=== PATIENT | female | born 1975 | race Caucasian/White ===

== ENCOUNTER 2020-10-31 10:41 | Outpatient (REF) | payer OTHER, SELFPAY | END 2020-10-31 10:42 | disposition home or self-care (01) | LOC: HO.LAB 10:41 | PROVIDERS: Visit Provider Internal Medicine | DX: Z20.822 Contact with and (suspected) exposure to COVID-19 (principal) | CPT/HCPCS: 36415; C9803; U0003; U0005 ==

== ENCOUNTER 2021-10-02 00:45 | Emergency (ER) | payer SELFPAY ==
[2021-10-02 00:57] VITALS: BP 123/65; BP 162/78; PULSE 74; PULSE 78; RESP 20; TEMP 36.9; O2SAT 100; O2SAT 98; BMI 36.6
== END 2021-10-02 06:44 | disposition left against medical advice (07) ==
LOC: HO.ED 06:43
PROVIDERS: Emergency Provider Emergency Medicine
DX: R10.31 Right lower quadrant pain (principal)
CPT/HCPCS: 99281; 99282

== ENCOUNTER 2021-12-28 07:45 | Outpatient (REF) | payer MEDICAID, SELFPAY ==
[2021-12-28 08:13] LABS: MANUAL DIFF FLAG NO
[2021-12-28 08:40] LABS: Basophils Percent Auto 0.4 % (0-2); Eosinophils Absolute Auto 0.2 X10*3/uL (0.0-0.4); Eosinophils Percent Auto 2.1 % (0-4); Hematocrit 40.3 % (37.0-47.0); Hemoglobin 12.8 g/dl (12.0-16.0); Imm Gran Abs Auto 0.03 X10*3/uL (0.00-0.03); Imm Gran Pct Auto 0.4 % (0.0-0.4); Lymphocytes Absolute Auto 2.2 X10*3/uL (1.2-4.9); Lymphocytes Percent Auto 30.4 % (20-40); Mean Corpuscular HGB Conc 31.8 g/dl (31.0-35.0); Mean Corpuscular Hemoglobin 28.2 pg (27.0-33.0); Mean Corpuscular Volume 88.8 fL (80.0-98.0); Mean Platelet Volume 10.6 fL (9.4-12.3); Monocytes Absolute Auto 0.7 X10*3/uL (0.1-1.2); Monocytes Percent Auto 9.2 % (2-11); Neutrophils Absolute Auto 4.2 x10*3/uL (2.0-8.3); Neutrophils Percent Auto 57.5 % (45-73); Platelet Count 258 X10*3/uL (160-400); Red Blood Count 4.54 X10*6/uL (4.20-5.50); Red Cell Distribution Width 12.6 % (11.0-16.0); White Blood Count 7.3 X10*3/uL (4.8-10.8)
[2021-12-28 09:30] LABS: Alanine Aminotransferase 76 U/L (0-31); Albumin Level 3.9 g/dL (3.5-5.0); Alkaline Phosphatase 146 U/L (39-117); Anion Gap 11 (12-20); Aspartate Amino Transferase 55 U/L (5-31); Bilirubin Total 0.5 mg/dL (0.0-1.0); Blood Urea Nitrogen 12 mg/dL (9-16); Calcium 9.4 mg/dL (8.4-10.2); Carbon Dioxide 27 mmol/L (22-29); Chloride 106 mmol/L (96-108); Cholesterol 172 mg/dL; Estimated Glomerular Filt Rate > 60; Glucose Random 133 mg/dL (60-115); HDL Cholesterol 60 mg/dL; LDL Cholesterol Calculated 96 mg/dl; Potassium 4.3 mmol/L (3.3-5.1); Sodium 140 mmol/L (135-145); Total Protein 7.2 g/dL (6.5-8.0); Triglycerides 81 mg/dL
[2021-12-28 09:53] LABS: Thyroid Stimulating Hormone 1.52 uIU/mL (0.32-4.0)
== END 2021-12-28 07:46 | disposition home or self-care (01) ==
LOC: HO.LAB 07:45
PROVIDERS: PCP Internal Medicine; Visit Provider Internal Medicine
DX: H52.03 Hypermetropia, bilateral (principal); I10 Essential (primary) hypertension; K27.7 Chronic peptic ulcer, site unspecified, without hemorrhage or perforation; R51.9 Headache, unspecified
CPT/HCPCS: 36415; 80053; 80061; 84443; 85025

== ENCOUNTER 2021-12-30 10:54 | Outpatient (REF) | payer MEDICAID, SELFPAY | END 2021-12-30 10:55 | disposition home or self-care (01) | LOC: HO.LNP 10:54 | PROVIDERS: Visit Provider Internal Medicine | DX: H52.03 Hypermetropia, bilateral (principal); I10 Essential (primary) hypertension; K27.7 Chronic peptic ulcer, site unspecified, without hemorrhage or perforation; R51.9 Headache, unspecified; Z11.0 Encounter for screening for intestinal infectious diseases | CPT/HCPCS: 87338 ==

== ENCOUNTER 2022-01-03 17:23 | Emergency (ER) | payer MEDICAID, SELFPAY ==
--- NOTE | ~2022-01-03 | XR_ITS ---
EXAMINATION: XR SHOULDER, RIGHT CLINICAL INFORMATION: Right shoulder pain COMPARISON: None TECHNIQUE: AP external rotation, Grashey, scapular Y, and axillary views of the right shoulder. FINDINGS: The bones and soft tissues are normal. No fracture. Glenohumeral and acromioclavicular alignment is anatomic with normal joint space. No abnormal soft tissue calcifications. XR/XR shoulder RT min 2V IMPRESSION: Normal right shoulder.
[2022-01-03 17:49] VITALS: BP 107/51; PULSE 90; RESP 12; TEMP 35.9; O2SAT 97; BMI 38.4
--- NOTE | 2022-01-03 19:38 | PC.NURSE ---
patient ambulated to EM from waiting room independently . at side . refused warehouse director . patient stated Thursday 12/28 she was playing with her grand son and twisted wrong , felt a sharp burn in her right shoulder / side and has been hurting since . no signs of trauma or swelling noted to area
--- NOTE | 2022-01-03 21:29 | ED_ITS ---
HPI - Extremity Problem General Chief complaint: Extremity Problem Stated complaint: shoulder injury Time Seen by Provider: 01/03/22 19:40 Source: patient Mode of arrival: ambulatory Limitations: no limitations History of Present Illness HPI Narrative: This is a 46-year-old female presenting to the emergency department with a right shoulder pain status post playing at the park with her granddaughter. Patient tells me she went to dip down on some monkey bar structure and she felt like her shoulder immediately started hurting. She reports pain when she tries to lift her right arm up. She also reports pain when she is trying to move herself up on the couch. She tells me she has intermittent tingling however no numbness. She tells me the pain is worse with movement better at rest. She denies numbness. MD Complaint: joint pain Onset (ago): day(s) (1) Pain Consistency: constant Location: right Quality: aching Radiation: none Relieving factors: immobilization Exacerbating factors: range of motion Associated symptoms: denies other symptoms Related Data Previous Rx's Medication Instructions Recorded cyclobenzaprine 10 mg tablet 10 mg PO BEDTIME PRN #7 tab 01/03/22 lidocaine 5 % topical patch 1 patch TOPICAL DAILY PRN #15 ea 01/03/22 naproxen 500 mg tablet 500 mg PO BID #14 tab 01/03/22 Allergies Allergy/AdvReac Type Severity Reaction Status Date / Time No Known Allergies Allergy Verified 10/02/21 01:02 Review of Systems Review of Systems: Constitutional : No Weight loss, No Fever, No Chills, No Fatigue, No Malaise ENT/Mouth : No sore throat, No Rhinorrhea Eyes: No Eye Pain, No Swelling, No Redness Cardiovascular : No Chest Pain, No SOB, No Dyspnea on Exertion, No Orthopnea, No Edema, No Palpitations Respiratory : No Cough, No Sputum, No Wheezing Gastrointestinal : No Nausea, No Vomiting, No Diarrhea, No Constipation, No abdominal Pain, No Hematochezia, No Melena Genitourinary : No Dysuria, No Urinary Frequency, No Hematuria, Musculoskeletal : + joint pain, No Myalgias, No Joint Swelling Skin : No Skin Lesions, No rash Neuro : No Weakness, No Numbness, No Dizziness, No Headache All other systems reviewed and are negative Yes all other systems are reviewed and are negative [facility] Past Medical History Attestation statement: The following information was validated with the patient. Source: old records reviewed and nursing notes reviewed Social History Social History Advance Directives: No Patient : No Physical Exam Vital Signs: Vital Signs: Last Vital Signs Temp 96.6 F L 01/03/22 17:49 Pulse 90 01/03/22 17:49 Resp 12 01/03/22 17:49 BP 107/51 L 01/03/22 17:49 Pulse Ox 97 01/03/22 17:49 BMI result Body Mass Index 38.4 Vital signs stable Appearance: Alert.? Oriented X3.? No acute distress.? Head: Normocephalic, atraumatic, no step-offs or deformities Eyes: Pupils equal, round and reactive to light.? ENT: Pharynx normal.? Neck: Normal inspection.? Neck supple.? CVS: Normal heart rate and rhythm.? Pulses normal.? Respiratory: No respiratory distress.? Breath sounds normal.? Abdomen: Soft and nontender.? Skin: Skin warm and dry.? Normal skin color.? Normal skin turgor.? Extremities: 5/5 strength to bilateral upper and lower extremities. Full range of motion to bilateral shoulders however painful in the right. No step-offs or deformities to bilateral shoulders/clavicles. Bilateral radial pulses 2+ equal and bilateral. Bilateral capillary refill on all digits less than 2 seconds. Sensory and motor intact. Normal strength bilaterally. Pain with apley scratch test on right. Negative neers and watson Back: No midline tenderness, no C-spine tenderness, full range of motion, no CVA tenderness bilaterally Neuro: Oriented X 3.? No motor deficit.? No sensory deficit. CN 2-12 intact Course Reevaluation(s) Reevaluation #1: Normal right shoulder x-ray. Patient was given Toradol, lidocaine patch and cyclobenzaprine. I will discharge her home on these medications. Advised her that I cannot rule out ligament or tendon involvement she should follow up with orthopedics if symptoms do not improve in 1-2 weeks. Advised her to return with new or worsening symptoms. Comfortable w/ discharge. Time: 21:36 MDM - Extremity (Nontraumatic) MDM Narrative Medical decision making narrative: 2133 46 yo f presents to the emergency department with right shoulder pain status post playing on the monkey bars at the park. Physical examination significant for pain with range of motion of right shoulder, no step-offs or deformities, positive Apley scratch test on the right. Pain with palpation of right scapular region. Bilateral radial pulses 2+ equal bilateral. Sensation and motor intact upper extremities. Capillary refill less than 2 seconds to all upper extremities. No evident ligament or tendon involvement however cannot rule out rotator cuff tear. Physical examination not consistent with AC separation Plan at this time is an x-ray. Critical Care Time Critical Care Time Critical Care Time: No Discharge Plan Discharge Clinical Impression: Right shoulder strain Patient Disposition: Home, Self-Care Instructions: Muscle Strain (ED) Additional Instructions: Take your medications as prescribed. If you were prescribed antibiotics today, it is important that you take your medication to their entirety, do not skip any doses, do not finish them early. Follow-up with your primary care provider this week. Follow-up with orthopedics if symptoms do not improve in 1-2 weeks. Return to the emergency department with new or worsening symptoms. Such as fevers, chills, chest pain, shortness of breath, nausea, vomiting, dizziness, headache, vision changes, lethargy, numbness, tingling In case of emergency call 911 XR/XR shoulder RT min 2V IMPRESSION: Normal right shoulder. Prescriptions: New cyclobenzaprine 10 mg tablet 10 mg PO BEDTIME PRN (Reason: muscle spasm) Qty: 7 0RF lidocaine 5 % adhesive patch,medicated 1 patch topical DAILY PRN (Reason: pain) Qty: 15 0RF Rx Instructions: leave on most painful area for up to 12 hrs naproxen 500 mg tablet 500 mg PO BID Qty: 14 0RF Referrals: Rachael Jordan MD [Primary Care Provider] - 2 days [facility] [Provider Group] - 1 week Stand Alone Forms: Work/School Release
== END 2022-01-03 22:00 | disposition home or self-care (01) ==
PROVIDERS: Emergency Provider Emergency Medicine Emergency Medical Services; PCP Internal Medicine
DX: S46.911A Strain of unspecified muscle, fascia and tendon at shoulder and upper arm level, right arm, initial encounter (principal); X58.XXXA Exposure to other specified factors, initial encounter; Y93.9 Activity, unspecified; Y92.830 Public park as the place of occurrence of the external cause; Y99.9 Unspecified external cause status
CPT/HCPCS: 73030; 96372; 99283; 99284

== ENCOUNTER 2022-01-08 09:00 | Outpatient (REF) | payer MEDICAID, SELFPAY ==
--- NOTE | ~2022-01-08 | MM_ITS ---
EXAMINATION: MM SCREENING DIGITAL BREAST TOMOSYNTHESIS, BILATERAL CLINICAL INFORMATION: Screening. Asymptomatic. Age 46. No prior breast imaging. The lifetime risk of breast cancer based on the Tyrer-Cuzick Model is 11%. COMPARISON: None (current study represents initial baseline exam). TECHNIQUE: Digital breast tomosynthesis is performed in both the craniocaudal and mediolateral oblique views along with computer-aided detection (CAD). Synthesized 2D images are generated from the tomosynthesis. FINDINGS: There are scattered areas of fibroglandular density (ACR BI-RADS breast composition Category b). Breast tissue composition borders on predominantly fatty. Background stromal and fibroglandular densities are unremarkable. There are no significant masses, abnormal calcifications, or other abnormalities. No architectural abnormality. The axilla and skin contours are unremarkable. MM/MM tomosynthesis screening BI IMPRESSION: No mammographic evidence of malignancy. ASSESSMENT: BI-RADS 1: Negative RECOMMENDATION: Routine annual mammography screening. This patient's information was entered into a reminder system with a target due date for their next mammogram.
== END 2022-01-08 09:01 | disposition home or self-care (01) ==
LOC: HO.MAMMO 09:00
PROVIDERS: Visit Provider Internal Medicine
DX: Z12.31 Encounter for screening mammogram for malignant neoplasm of breast (principal)
CPT/HCPCS: 77063; 77067

== ENCOUNTER 2023-01-14 11:46 | Outpatient (REF) | payer MEDICAID, SELFPAY ==
[2023-01-14 13:14] LABS: Alanine Aminotransferase 40 U/L (0-31); Albumin Level 4.1 g/dL (3.5-5.0); Alkaline Phosphatase 132 U/L (39-117); Anion Gap 11 (12-20); Aspartate Amino Transferase 37 U/L (5-31); Bilirubin Total 0.5 mg/dL (0.0-1.0); Blood Urea Nitrogen 9 mg/dL (9-16); Calcium 9.1 mg/dL (8.4-10.2); Carbon Dioxide 25 mmol/L (22-29); Chloride 107 mmol/L (96-108); Estimated Glomerular Filt Rate > 60; Glucose Random 97 mg/dL (60-115); Potassium 4.4 mmol/L (3.3-5.1); Sodium 139 mmol/L (135-145)
[2023-01-14 13:15] LABS: Estimated Average Glucose 131 mg/dL; Hemoglobin A1c % 6.2 %
[2023-01-17 09:03] LABS: HBS Num1 0.27 mIU/mL (0-7.99); HBc Num1 0.11 S/CO (0.00-0.79); HBsAGNum1 0.39 S/CO (0.00-0.99); Hepatitis A Antibody IgM 0.17 Index (0-0.79); Hepatitis B Core Antibody Nonreactive (Nonreactive); Hepatitis B Surface Antigen Negative (Negative); ~HepC Num1 0.09 S/CO (0.00-0.79); ~Hepatitis A Antibody IgM Nonreactive (Nonreactive); ~Hepatitis B Surface Antibody NONREACTIVE (Nonreactive); ~Hepatitis C Antibody Nonreactive (Nonreactive)
== END 2023-01-14 11:47 | disposition home or self-care (01) ==
LOC: HO.LAB 11:46
PROVIDERS: PCP Internal Medicine; Visit Provider Internal Medicine
DX: Z00.00 Encounter for general adult medical examination without abnormal findings (principal); R74.01 Elevation of levels of liver transaminase levels; R73.01 Impaired fasting glucose; M65.4 Radial styloid tenosynovitis [de Quervain]
CPT/HCPCS: 36415; 80053; 83036; 86704; 86706; 86709; 86803; 87340

== ENCOUNTER 2023-02-03 15:16 | Outpatient (REF) | payer MEDICAID, SELFPAY ==
--- NOTE | ~2023-02-03 | MM_ITS ---
EXAMINATION: MM SCREENING DIGITAL BREAST TOMOSYNTHESIS, BILATERAL CLINICAL INFORMATION: Screening. Asymptomatic. The lifetime risk of breast cancer based on the Tyrer-Cuzick Model is 5.4%. COMPARISON: Mammography: January 08, 2022 TECHNIQUE: Digital breast tomosynthesis is performed in both the craniocaudal and mediolateral oblique views along with computer-aided detection (CAD). Synthesized 2D images are generated from the tomosynthesis. FINDINGS: The breasts are almost entirely fatty (ACR BI-RADS breast composition Category a). There are no significant masses, abnormal calcifications, or other abnormalities. MM/MM tomosynthesis screening BI IMPRESSION: No significant changes from prior exam. ASSESSMENT: BI-RADS 1: Negative RECOMMENDATION: Routine annual mammography screening. This patient's information was entered into a reminder system with a target due date for their next mammogram.
== END 2023-02-03 15:17 | disposition home or self-care (01) ==
LOC: HO.MAMMO 15:16
PROVIDERS: PCP Internal Medicine; Visit Provider Internal Medicine
DX: Z12.31 Encounter for screening mammogram for malignant neoplasm of breast (principal)
CPT/HCPCS: 77063; 77067

== ENCOUNTER 2023-10-20 09:26 | Outpatient (REF) | payer MEDICAID, SELFPAY ==
[2023-10-20 11:09] LABS: Alanine Aminotransferase 19 U/L (0-31); Albumin Level 3.9 g/dL (3.5-5.0); Alkaline Phosphatase 142 U/L (39-117); Anion Gap 9 (12-20); Aspartate Amino Transferase 18 U/L (5-31); Bilirubin Total 0.5 mg/dL (0.0-1.0); Blood Urea Nitrogen 13 mg/dL (9-16); Calcium 9.5 mg/dL (8.4-10.2); Carbon Dioxide 29 mmol/L (22-29); Chloride 106 mmol/L (96-108); Estimated Glomerular Filt Rate > 60; Glucose Random 95 mg/dL (60-115); Potassium 4.2 mmol/L (3.3-5.1); Sodium 140 mmol/L (135-145); Total Protein 7.5 g/dL (6.5-8.0)
== END 2023-10-20 09:27 | disposition home or self-care (01) ==
LOC: HO.LAB 09:26
PROVIDERS: PCP Internal Medicine; Visit Provider Internal Medicine
DX: I10 Essential (primary) hypertension (principal); R63.4 Abnormal weight loss; R74.01 Elevation of levels of liver transaminase levels
CPT/HCPCS: 36415; 80053

== ENCOUNTER 2024-11-25 20:25 | Emergency (ER) | payer OTHER, SELFPAY ==
[2024-11-25 20:36] VITALS: BP 149/77; PULSE 90; RESP 18; TEMP 37; O2SAT 98; BMI 36.3
--- NOTE | 2024-11-25 20:39 | ED_ITS ---
HPI - General Adult General Chief complaint: Headache Stated complaint: flu like symptoms Time Seen by Provider: 11/25/24 23:23 Source: patient Mode of arrival: ambulatory Limitations: no limitations History of Present Illness ED Provider: HPI narrative: patient's history of migraine been having headache for last 4 days taken Tylenol Excedrin without much help does have nausea and photosensitivity no head injury no fever or chills Related Data Previous Rx's ?Medication ?Instructions ?Recorded cyclobenzaprine 10 mg tablet 10 mg PO BEDTIME PRN muscle spasm 01/03/22 #7 tabs lidocaine 5 % topical patch 1 patch topical DAILY PRN pain #15 01/03/22 ea naproxen 500 mg tablet 500 mg PO BID #14 tabs 01/03/22 [id number] 1 tab PO Q6H PRN haeadace #20 tabs 11/26/24 50 mg-325 mg-40 mg tablet Allergies Allergy/AdvReac Type Severity Reaction Status Date / Time No Known Allergies Allergy Verified 11/25/24 20:39 Review of Systems Review of Systems: Yes all other systems are reviewed and are negative [facility] Social History Social History Advance Directives: No Advance Directives Information Provided: Yes Physical Exam ED Vital Signs: Vital Signs - 24 hr 11/26/24 00:22 11/26/24 01:29 11/26/24 01:41 Temperature 97.6 F 98 F 0 F L Pulse Rate 72 69 0 L Respiratory Rate 18 18 0 L Blood Pressure 158/94 H 134/69 0/0 L Pulse Oximetry 100 99 0 L Oxygen Delivery Method Room Air Room Air BMI result Body Mass Index 36.3 Appearance: Alert. Oriented X3. No acute distress. photosensitive Eyes: PERRLA, No Nystagmus ENT: Pharynx normal. Oral Mucosa moist temporal artery nontender Neck: Normal inspection. Neck supple. no midline tenderness CVS: Normal heart rate and rhythm. Pulses normal. Respiratory: No respiratory distress. Equal air entry bilateral, no wheezing/rales/rhonchi Abdomen: Soft and nontender. Bowel sounds are present, no mass palpable, no CVA tenderness Skin: Skin warm and dry. Normal skin color. Normal skin turgor. Extremities: No lower extremity edema. No calf tenderness Neuro: Oriented X 3. No motor deficit. No sensory deficit.No cerebellar signs , cranial nerves II-XII intact Course Course Course Narrative: RME: 49 yold female with pmh of migraine presetns to the ED for headache, coughing, and chills. Patient staets taking execedring before coming to the ED. Medications Administered Discontinued Medications Generic Name Dose Route Start Last Admin Trade Name Freq PRN Reason Stop Dose Admin Acetaminophen/Butalbital/Caffeine 1 tab 11/25/24 23:56 11/26/24 00:15 Butalb/Acetamin/Caff 50/325/40 Tablet PO 11/25/24 23:57 1 tab ONCE ONE Administration Ketorolac Tromethamine 60 mg 11/26/24 00:47 11/26/24 01:02 Ketorolac Tromethamine 60 Mg/2 Ml Vial IM 11/26/24 00:48 60 mg ONCE ONE Administration Ondansetron HCl 4 mg 11/25/24 23:56 11/26/24 00:16 Ondansetron Odt 4 Mg Tab.Rapdis TRANSLINGU 11/25/24 23:57 4 mg ONCE ONE Administration Sumatriptan Succinate 6 mg 11/25/24 23:56 11/26/24 00:16 Sumatriptan Succinate 6 Mg/0.5 Ml Vial SUBCUT 11/25/24 23:57 6 mg ONCE ONE Administration Medical Decision Making Medical Decision Making [facility] Narrative: patient's migraine headache improved after Toradol and Imitrex feeling much better will discharge patient home on Imitrex Fioricet Lab Data Labs: Lab Results 11/25/24 Range/Units 21:07 Influenza Type A (PCR) NEGATIVE (Negative) Influenza Type B (PCR) NEGATIVE (Negative) RSV RNA Qual (PCR) NEGATIVE (Negative) SARS-CoV-2 RNA (RT-PCR) NEGATIVE (Negative) S. pyogenes GrpA MACIE Negative (Negative) Discharge Plan Discharge Clinical Impression: Migraine Patient Disposition: Home, Self-Care Instructions: Migraine Headache (ED) Additional Instructions: Rest at home Medication for migraine as prescribed 1 tablet every 6 hours as needed Follow up with your PCP Prescriptions: New [id number]-epmtbgnrhbpkl-eoal 50-325-40 mg tablet 1 tab PO Q6H PRN (Reason: haeadace) Qty: 20 0RF No Action cyclobenzaprine 10 mg tablet 10 mg PO BEDTIME PRN (Reason: muscle spasm) Qty: 7 0RF lidocaine 5 % adhesive patch,medicated 1 patch topical DAILY PRN (Reason: pain) Qty: 15 0RF Rx Instructions: leave on most painful area for up to 12 hrs naproxen 500 mg tablet 500 mg PO BID Qty: 14 0RF Interventions: ED Discharge Assessment Last Done: 11/26/24 01:41 Discharge Date/Time: 11/26/24 01:42 Print Language: Albanian
[2024-11-25 21:22] LABS: IDNOW Serial# 6674DD1D; Strep A Nucleic Acid Negative (Negative)
[2024-11-25 21:55] LABS: Influenza A PCR NEGATIVE (Negative); Influenza B PCR NEGATIVE (Negative); Resp Syncy Virus RNA Qual PCR NEGATIVE (Negative); SARS COV2 PCR INHOUSE NEGATIVE (Negative)
--- NOTE | 2024-11-25 23:58 | ED.HA ---
HPI - Headache General Chief Complaint: Headache Stated Complaint: flu like symptoms Time Seen by Provider: 11/25/24 23:23 Source: patient Mode of arrival: ambulatory Limitations: no limitations History of Present Illness ED Provider: HPI Narrative: Patient's history of migraine headache been having headache for last 2 days localized to the right side with nausea light sensitivity no head injury patient's used to get migraine headache in the past but in have for some time also had upper respiratory symptoms week ago much better from that now no fever no chills Related Data Previous Rx's ?Medication ?Instructions ?Recorded cyclobenzaprine 10 mg tablet 10 mg PO BEDTIME PRN muscle spasm 01/03/22 #7 tabs lidocaine 5 % topical patch 1 patch topical DAILY PRN pain #15 01/03/22 ea naproxen 500 mg tablet 500 mg PO BID #14 tabs 01/03/22 [id number]-dpaymtzu 1 tab PO Q6H PRN haeadace #20 tabs 11/26/24 50 mg-325 mg-40 mg tablet Allergies Allergy/AdvReac Type Severity Reaction Status Date / Time No Known Allergies Allergy Verified 11/25/24 20:39 Review of Systems Review of Systems: Yes all other systems are reviewed and are negative [facility] Social History Social History Advance Directives: No Advance Directives Information Provided: Yes Physical Exam Vital Signs: Vital Signs: Last Vital Signs Temp 0 F L 11/26/24 01:41 Pulse 0 L 11/26/24 01:41 Resp 0 L 11/26/24 01:41 BP 0/0 L 11/26/24 01:41 Pulse Ox 0 L 11/26/24 01:41 O2 Del Method Room Air 11/26/24 01:29 BMI result Body Mass Index 36.3 Appearance: Alert. Oriented X3. No acute distress. Eyes: PERRLA, No Nystagmus ENT: Pharynx normal. Oral Mucosa moist no temporal artery tenderness Neck: Normal inspection. Neck supple. CVS: Normal heart rate and rhythm. Pulses normal. Respiratory: No respiratory distress. Equal air entry bilateral, no wheezing/rales/rhonchi Abdomen: Soft and nontender. Bowel sounds are present, no mass palpable, no CVA tenderness Skin: Skin warm and dry. Normal skin color. Normal skin turgor. Extremities: No lower extremity edema. No calf tenderness Neuro: Oriented X 3. No motor deficit. No sensory deficit.No cerebellar signs , cranial nerves II-XII intact Medications Administered Discontinued Medications Generic Name Dose Route Start Last Admin Trade Name Freq PRN Reason Stop Dose Admin Acetaminophen/Butalbital/Caffeine 1 tab 11/25/24 23:56 11/26/24 00:15 Butalb/Acetamin/Caff 50/325/40 Tablet PO 11/25/24 23:57 1 tab ONCE ONE Administration Ketorolac Tromethamine 60 mg 11/26/24 00:47 11/26/24 01:02 Ketorolac Tromethamine 60 Mg/2 Ml Vial IM 11/26/24 00:48 60 mg ONCE ONE Administration Ondansetron HCl 4 mg 11/25/24 23:56 11/26/24 00:16 Ondansetron Odt 4 Mg Tab.Rapdis TRANSLINGU 11/25/24 23:57 4 mg ONCE ONE Administration Sumatriptan Succinate 6 mg 11/25/24 23:56 11/26/24 00:16 Sumatriptan Succinate 6 Mg/0.5 Ml Vial SUBCUT 11/25/24 23:57 6 mg ONCE ONE Administration Medical Decision Making Medical Decision Making [facility] Narrative: Patient with migraine headache will give Imitrex and Fioricet Lab Data [facility] Lab Attestation statement: I reviewed the patient's lab results. Labs: Lab Results 11/25/24 Range/Units 21:07 Influenza Type A (PCR) NEGATIVE (Negative) Influenza Type B (PCR) NEGATIVE (Negative) RSV RNA Qual (PCR) NEGATIVE (Negative) SARS-CoV-2 RNA (RT-PCR) NEGATIVE (Negative) S. pyogenes GrpA MACIE Negative (Negative) Discharge Plan Discharge Clinical Impression: Migraine Patient Disposition: Home, Self-Care Instructions: Migraine Headache (ED) Additional Instructions: Rest at home Medication for migraine as prescribed 1 tablet every 6 hours as needed Follow up with your PCP Prescriptions: New [id number]-altmvgzgacxwc-afgw 50-325-40 mg tablet 1 tab PO Q6H PRN (Reason: haeadace) Qty: 20 0RF No Action cyclobenzaprine 10 mg tablet 10 mg PO BEDTIME PRN (Reason: muscle spasm) Qty: 7 0RF lidocaine 5 % adhesive patch,medicated 1 patch topical DAILY PRN (Reason: pain) Qty: 15 0RF Rx Instructions: leave on most painful area for up to 12 hrs naproxen 500 mg tablet 500 mg PO BID Qty: 14 0RF Interventions: ED Discharge Assessment Last Done: 11/26/24 01:41 Discharge Date/Time: 11/26/24 01:42 Print Language: [place]
[2024-11-26] MEDS: Butalb/Acetamin/Caff 50/325/40 TABLET 1 TAB PO (00:15)
[2024-11-26] MEDS: Ondansetron ODT 4 MG TAB.RAPDIS TRANSLINGU (00:16)
[2024-11-26] MEDS: SUMAtriptan succinate 6 MG/0.5 ML VIAL SUBCUT (00:16)
--- NOTE | 2024-11-26 00:18 | PC.NURSE ---
Medicated per NOV for 10/10 pain to head, placed on tele monitoring due to Imitrex admin. VSS at this time. Call suero within reach, continue to monitor.
[2024-11-26 00:22] VITALS: BP 158/94; PULSE 72; RESP 18; TEMP 36.4; O2SAT 100
--- NOTE | 2024-11-26 00:46 | PC.NURSE ---
MD at bedside. Pt reports no relief of pain.
[2024-11-26] MEDS: Ketorolac Tromethamine 60 MG/2 ML VIAL IM (01:02)
[2024-11-26 01:29] VITALS: BP 134/69; PULSE 69; RESP 18; TEMP 36.6; O2SAT 99
[2024-11-26 01:41] VITALS: BP 0/0; PULSE 0; RESP 0; TEMP -17.7; TEMP 0; O2SAT 0
--- NOTE | 2024-11-26 01:41 | PC.NURSE ---
Pt reports relief of pain after Toradol.
== END 2024-11-26 01:42 | disposition home or self-care (01) ==
PROVIDERS: Physician Assistant; Emergency Provider Internal Medicine; PCP Internal Medicine
DX: G43.909 Migraine, unspecified, not intractable, without status migrainosus (principal); R11.0 Nausea; Z03.818 Encounter for observation for suspected exposure to other biological agents ruled out
CPT/HCPCS: 0241U; 87651; 96372; 99283; 99284; J1885; J3030

== ENCOUNTER 2025-02-25 14:22 | Outpatient (REF) | payer OTHER, SELFPAY ==
--- OUTSIDE RECORDS SUMMARY | 2025-02-25 16:20 | XMS_ITS | Patient Health Record ---
Author [facility] Address [address] [place] [address] Care Team Providers Care [employer] Name Role Phone Rachael Jordan Primary Care Provider UnavailDany Negrete Unavailable [phone] Reason For Referral No Information Plan Of Treatment No Information Insurance Providers Payer Name Payer Address Payer Phone Subscriber Number Group Number Insured Name Patient Relationship to Insured Coverage Start Date Coverage End Date MEDICAID OF [facility] [address] [place] [id number] GEORGETTE RICHMOND Self - patient is the insured
[2025-02-28 01:22] LABS: TS Negative Control Passed; TS Panel A 0; TS Panel B 0; TS Positive Control Passed; TSpotTB Negative (Negative)
== END 2025-02-25 14:23 | disposition home or self-care (01) ==
LOC: HO.LAB 14:22
PROVIDERS: PCP Internal Medicine; Visit Provider Internal Medicine
DX: Z11.1 Encounter for screening for respiratory tuberculosis (principal); I10 Essential (primary) hypertension; K59.00 Constipation, unspecified; R74.8 Abnormal levels of other serum enzymes
CPT/HCPCS: 36415; 86481

== ENCOUNTER 2025-03-01 09:24 | Outpatient (REF) | payer OTHER, SELFPAY ==
[2025-03-01 09:44] LABS: MANUAL DIFF FLAG NO
--- OUTSIDE RECORDS SUMMARY | 2025-03-01 09:51 | XMS_ITS | Patient Health Record ---
Author Organization [facility] Address [address] [place] [address] Care Team Providers Care Public Aid Eligibility Assistant Name Role Phone Rachael Jordan Primary Care Provider UnavailDany Negrete Unavailable [phone] Reason For Referral No Information Plan Of Treatment No Information Insurance Providers Payer Name Payer Address Payer Phone Subscriber Number Group Number Insured Name Patient Relationship to Insured Coverage Start Date Coverage End Date MEDICAID OF [facility] [address] [place] [id number] GEORGETTE RICHMOND Self - patient is the insured
[2025-03-01 10:21] LABS: Basophils Percent Auto 0.6 % (0-2); Eosinophils Absolute Auto 0.1 X10*3/uL (0.0-0.4); Eosinophils Percent Auto 1.7 % (0-4); Hematocrit 41.2 % (37.0-47.0); Hemoglobin 13.5 g/dl (12.0-16.0); Imm Gran Abs Auto 0.02 X10*3/uL (0.00-0.03); Imm Gran Pct Auto 0.3 % (0.0-0.4); Lymphocytes Absolute Auto 1.9 X10*3/uL (1.2-4.9); Lymphocytes Percent Auto 27.4 % (20-40); Mean Corpuscular HGB Conc 32.8 g/dl (31.0-35.0); Mean Corpuscular Volume 88.6 fL (80.0-98.0); Monocytes Absolute Auto 0.6 X10*3/uL (0.1-1.2); Monocytes Percent Auto 8.9 % (2-11); Neutrophils Absolute Auto 4.3 x10*3/uL (2.0-8.3); Neutrophils Percent Auto 61.1 % (45-73); Platelet Count 257 X10*3/uL (160-400); Red Blood Count 4.65 X10*6/uL (4.20-5.50); Red Cell Distribution Width 13.1 % (11.0-16.0); White Blood Count 7.1 X10*3/uL (4.8-10.8)
[2025-03-01 10:45] LABS: Alanine Aminotransferase 51 U/L (0-31); Albumin Level 4.5 g/dL (3.5-5.0); Alkaline Phosphatase 129 U/L (39-117); Anion Gap 10 (12-20); Aspartate Amino Transferase 38 U/L (5-31); Bilirubin Total 0.6 mg/dL (0.0-1.0); Blood Urea Nitrogen 14 mg/dL (9-16); Calcium 9.4 mg/dL (8.4-10.2); Carbon Dioxide 29 mmol/L (22-29); Chloride 107 mmol/L (96-108); Cholesterol 197 mg/dL (<200); Estimated Glomerular Filt Rate > 60; Gamma Glutamyl Transpeptidase 43 U/L (7-33); Glucose Random 124 mg/dL (60-115); HDL Cholesterol 68 mg/dL (>40); LDL Cholesterol Calculated 113 mg/dL (<100); Potassium 4.1 mmol/L (3.3-5.1); Sodium 142 mmol/L (135-145); Total Protein 7.8 g/dL (6.5-8.0); Triglycerides 83 mg/dL (<150)
[2025-03-01 11:03] LABS: Thyroid Stimulating Hormone 1.51 uIU/mL (0.32-4.0)
[2025-03-04 02:09] LABS: TS Negative Control Passed; TS Panel A 0; TS Panel B 0; TS Positive Control Passed; TSpotTB Negative (Negative)
[2025-03-05 11:38] LABS: Mitochondrial Antibodies NEGATIVE (NEGATIVE)
== END 2025-03-01 09:25 | disposition home or self-care (01) ==
LOC: HO.LAB 09:24
PROVIDERS: PCP Internal Medicine; Visit Provider Internal Medicine
DX: I10 Essential (primary) hypertension (principal); K59.00 Constipation, unspecified; R74.8 Abnormal levels of other serum enzymes; Z11.1 Encounter for screening for respiratory tuberculosis
CPT/HCPCS: 36415; 80053; 80061; 82977; 84443; 85025; 86381; 86481

== ENCOUNTER 2025-03-23 18:46 | Emergency (ER) | payer OTHER, SELFPAY ==
--- NOTE | ~2025-03-23 | XR_ITS ---
CLINICAL HISTORY: pain 1 view abdomen Comparison: None provided Findings: No pneumoperitoneum or pneumatosis. No dilated loops of bowel or evidence for bowel obstruction. Surgical clips are present over the right upper abdominal quadrant, possibly consistent with prior cholecystectomy. No acute fractures. IMPRESSION: 1. Nonobstructed bowel-gas pattern. This document has been electronically signed by: Matthew Pritchard MD on 03/23/2025 21:58:29
--- NOTE | 2025-03-23 18:56 | ED.GENADULT ---
HPI - General Adult General Chief complaint: Abdominal Pain Stated complaint: abd pain nausea Time Seen by Provider: 03/23/25 20:31 Source: patient Limitations: language barrier History of Present Illness ED Provider: Aleta Paredes PA-C HPI narrative: 49-year-old female with a history of GERD, morbid obesity, migraine who presents with epigastric discomfort x3 days. Patient states every time she eats, she develops diarrhea. Associated ?choking sensation? in her throat. Denies nausea, vomiting, fever. Associated abdominal bloating, denies constipation. Denies inability to pass flatus. Related Data Previous Rx's ?Medication ?Instructions ?Recorded cyclobenzaprine 10 mg tablet 10 mg PO BEDTIME PRN muscle spasm 01/03/22 #7 tabs lidocaine 5 % topical patch 1 patch topical DAILY PRN pain #15 01/03/22 ea naproxen 500 mg tablet 500 mg PO BID #14 tabs 01/03/22 [id number]-syykgwscdwkhk-awuokuwi 1 tab PO Q6H PRN haeadace #20 tabs 11/26/24 50 mg-325 mg-40 mg tablet sucralfate 100 mg/mL oral 10 ml PO QID PRN indigestion #300 03/23/25 suspension (Carafate) mL Allergies Allergy/AdvReac Type Severity Reaction Status Date / Time No Known Allergies Allergy Verified 03/23/25 19:00 [facility] Social History Social History Alcohol intake: current Alcohol intake frequency: holidays/special occasions only Smoked in Last 30 Days: No Use of substances other than those prescribed or required for medical reasons: No Advance Directives: No Advance Directives Information Provided: Yes Do you have a plan to hurt others: No Plan Patient : No Physical Exam ED Vital Signs: Vital Signs - 24 hr 03/23/25 18:58 Temperature 98.6 F Pulse Rate 98 Respiratory Rate 16 Blood Pressure 156/72 H Pulse Oximetry 97 Oxygen Delivery Method Room Air BMI result Body Mass Index 35.9 Course Course Course Narrative: RME performed by Jerica Bautista PA-C. Patient is a 49 year old assigned female at presenting to the emergency department with abdominal pain. Patient states that she has an appointment in May with a GI specialist but her gastritis is getting worse. Detailed physical exam and review of systems are deferred to the drafter civil (cad). EKG, labs, and swabs ordered. Patient placed back in the waiting room pending room availability and results. Medications Administered Discontinued Medications Generic Name Dose Route Start Last Admin Trade Name Lala PRN Reason Stop Dose Admin Sucralfate 1 gm 03/23/25 20:50 03/23/25 21:06 Sucralfate Oral Suspension 1 Gm/10 Ml Oral.Susp PO 03/23/25 20:51 1 gm ONCE ONE Administration Medical Decision Making Medical Decision Making MDM Narrative: 49-year-old female with a history of GERD, morbid obesity, migraine who presents with epigastric discomfort x3 days. Patient states every time she eats, she develops diarrhea. Associated ?choking sensation? in her throat. Denies nausea, vomiting, fever. Associated abdominal bloating, denies constipation. Denies inability to pass flatus. Problem: GERD, obesity History: Per patient I have considered the following differential diagnoses: Biliary colic, cholecystitis, GERD/gastritis, viral gastroenteritis, constipation, bowel obstruction Plan: It sounds as if patient has poorly controlled GERD, based on the report of her symptoms. We will give Carafate and reassess. Screening labs were already obtained from triage and are overall unremarkable. With a concurrent diarrhea, perhaps she has viral gastroenteritis. With the abdominal distention, considering bowel obstruction, however she does not have obstructive symptoms, she denies constipation, obtaining a KUB. She has no focal right upper quadrant pain to suggest biliary colic, she is also status post cholecystectomy. I have independently reviewed the following tests: Labs: No leukocytosis, not anemic, no electrolyte abnormality KUB:Findings: No pneumoperitoneum or pneumatosis. No dilated loops of bowel or evidence for bowel obstruction. Surgical clips are present over the right upper abdominal quadrant, possibly consistent with prior cholecystectomy. No acute fractures. IMPRESSION: 1. Nonobstructed bowel-gas pattern. Lab Data 03/23/25 19:16 03/23/25 19:16 Labs: Lab Results 03/23/25 Range/Units 19:16 WBC 5.7 (4.8-10.8) X10*3/uL RBC 4.72 (4.20-5.50) X10*6/uL Hgb 13.7 (12.0-16.0) g/dl Hct 39.4 (37.0-47.0) % MCV 83.5 (80.0-98.0) fL MCH 29.0 (27.0-33.0) pg MCHC 34.8 (31.0-35.0) g/dl RDW 12.3 (11.0-16.0) % Plt Count 190 D (160-400) X10*3/uL MPV 10.6 (9.4-12.3) fL Immature Gran % (Auto) 0.2 (0.0-0.4) % Neut % (Auto) 64.0 (45-73) % Lymph % (Auto) 21.1 (20-40) % Andrew % (Auto) 12.4 H (2-11) % Eos % (Auto) 1.8 (0-4) % Baso % (Auto) 0.5 (0-2) % Lymph # (Auto) 1.2 (1.2-4.9) X10*3/uL Andrew # (Auto) 0.7 (0.1-1.2) X10*3/uL Eos # (Auto) 0.1 (0.0-0.4) X10*3/uL Baso # (Auto) 0.0 (0.0-0.2) X10*3/uL Abs Immat Gran (auto) 0.01 (0.00-0.03) X10*3/uL Absolute Neuts (auto) 3.6 (2.0-8.3) x10*3/uL Absolute Nucleated RBC 0.000 (0.0-0.012) X10*3/uL Nucleated RBC % (auto) 0.0 (0.0-0.2) /100WBC PT 12.2 (10.9-12.4) SEC INR 1.1 (0.9-1.1) Sodium 139 (135-145) mmol/L Potassium 3.7 (3.3-5.1) mmol/L Chloride 106 (96-108) mmol/L Carbon Dioxide 22 (22-29) mmol/L Anion Gap 15 (12-20) BUN 11 (9-16) mg/dL Creatinine 0.69 (0.5-1.4) mg/dL Estim Creat Clear Calc 102.2 Estimated GFR > 60 Random Glucose 120 H (60-115) mg/dL Calcium 9.0 (8.4-10.2) mg/dL Magnesium 2.1 (1.6-2.6) mg/dL Total Bilirubin 0.3 (0.0-1.0) mg/dL AST 65 H (5-31) U/L ALT 73 H (0-31) U/L Alkaline Phosphatase 126 H (39-117) U/L Troponin I High Sens < 2.7 (<3.5-17.0) ng/L Total Protein 7.5 (6.5-8.0) g/dL Albumin 4.3 (3.5-5.0) g/dL Beta HCG, Quant 5 mIU/mL Influenza Type A (PCR) NEGATIVE (Negative) Influenza Type B (PCR) NEGATIVE (Negative) RSV RNA Qual (PCR) NEGATIVE (Negative) SARS-CoV-2 RNA (RT-PCR) NEGATIVE (Negative) Discharge Plan Discharge Clinical Impression: Viral gastroenteritis, GERD (gastroesophageal reflux disease) Patient Disposition: Home, Self-Care Instructions: Diet for Stomach Ulcers and Gastritis (ED), GERD (Gastroesophageal Reflux Disease) (ED) Additional Instructions: Your symptoms are likely secondary to viral gastroenteritis, see home care instructions. See home care instructions. Use the Carafate as needed for upper abdominal discomfort. You can take it up to 4 times a day. Foods which are common triggers for GERD are anything spicy, acidic, anything carbonated, caffeine, mint, alcohol. Eating smaller more frequent meals throughout the day can help alleviate symptoms. Do not eat 3 hours before bed. Follow up with your primary care provider as needed. Prescriptions: New sucralfate [Carafate] 100 mg/mL suspension 10 ml PO QID PRN (Reason: indigestion) Qty: 300 0RF Rx Instructions: swish in mouth and swallow; use after food/drink No Action cyclobenzaprine 10 mg tablet 10 mg PO BEDTIME PRN (Reason: muscle spasm) Qty: 7 0RF lidocaine 5 % adhesive patch,medicated 1 patch topical DAILY PRN (Reason: pain) Qty: 15 0RF Rx Instructions: leave on most painful area for up to 12 hrs naproxen 500 mg tablet 500 mg PO BID Qty: 14 0RF mcztysfkqt-goanhvobckcto-eayg 50-325-40 mg tablet 1 tab PO Q6H PRN (Reason: haeadace) Qty: 20 0RF Print Language: Gabonese
--- NOTE | 2025-03-23 18:57 | ECG_ITS ---
Test Reason : EPIGASTRIC PAIN Blood Pressure : */* mmHG Vent. Rate : 88 BPM Atrial Rate : 88 BPM P-R Int : 132 ms QRS Dur : 76 ms QT Int : 376 ms P-R-T Axes : 40 30 37 degrees QTcB Int : 454 ms Normal sinus rhythm Normal ECG No previous ECGs available Referred By: Jerica Bautista Electronically Signed By: KEYANA HUTCHINSON MD
[2025-03-23 18:58] VITALS: BP 156/72; PULSE 98; RESP 16; TEMP 37; O2SAT 97; BMI 35.9
[2025-03-23 19:24] LABS: MANUAL DIFF FLAG NO
[2025-03-23 19:25] LABS: Hematocrit 39.4 % (37.0-47.0); Hemoglobin 13.7 g/dl (12.0-16.0); Imm Gran Abs Auto 0.01 X10*3/uL (0.00-0.03); Imm Gran Pct Auto 0.2 % (0.0-0.4); Lymphocytes Absolute Auto 1.2 X10*3/uL (1.2-4.9); Mean Corpuscular HGB Conc 34.8 g/dl (31.0-35.0); Mean Corpuscular Hemoglobin 29.0 pg (27.0-33.0); Mean Corpuscular Volume 83.5 fL (80.0-98.0); NRBC Abs Auto 0.000 X10*3/uL (0.0-0.012); NRBC Pct Auto 0.0 /100WBC (0.0-0.2); Platelet Count 190 X10*3/uL (160-400); Red Blood Count 4.72 X10*6/uL (4.20-5.50); White Blood Count 5.7 X10*3/uL (4.8-10.8)
[2025-03-23 19:31] LABS: INTERNATIONAL NORM RATIO 1.1 (0.9-1.1); Prothrombin Time 12.2 SEC (10.9-12.4)
[2025-03-23 19:38] LABS: Alanine Aminotransferase 73 U/L (0-31); Albumin Level 4.3 g/dL (3.5-5.0); Alkaline Phosphatase 126 U/L (39-117); Anion Gap 15 (12-20); Aspartate Amino Transferase 65 U/L (5-31); Blood Urea Nitrogen 11 mg/dL (9-16); Calcium 9.0 mg/dL (8.4-10.2); Carbon Dioxide 22 mmol/L (22-29); Chloride 106 mmol/L (96-108); Creatinine Clr Calc Pharmacy 102.2; Estimated Glomerular Filt Rate > 60; Magnesium 2.1 mg/dL (1.6-2.6); Potassium 3.7 mmol/L (3.3-5.1); Sodium 139 mmol/L (135-145); Total Protein 7.5 g/dL (6.5-8.0)
[2025-03-23 19:47] LABS: Troponin-I High Sensitivity < 2.7 ng/L (<3.5-17.0)
[2025-03-23 20:02] LABS: Resp Syncy Virus RNA Qual PCR NEGATIVE (Negative); SARS COV2 PCR INHOUSE NEGATIVE (Negative)
[2025-03-23] MEDS: Sucralfate Oral Suspension 1 GM/10 ML ORAL.SUSP PO (21:06)
[2025-03-23 22:59] VITALS: BP 96/46; PULSE 96; RESP 18; TEMP 37; O2SAT 100
== END 2025-03-23 23:01 | disposition home or self-care (01) ==
PROVIDERS: Physician Assistant Medical; Emergency Provider Emergency Medicine; PCP Internal Medicine
DX: A08.4 Viral intestinal infection, unspecified (principal); K21.9 Gastro-esophageal reflux disease without esophagitis; R10.13 Epigastric pain; Z79.899 Other long term (current) drug therapy
CPT/HCPCS: 36415; 74018; 80053; 83735; 84484; 84702; 85025; 85610; 87637; 93005; 99283; 99284

== ENCOUNTER → 2025-03-23 18:57 | Outpatient (BNV) | payer OTHER, SELFPAY | PROVIDERS: Emergency Provider Emergency Medicine; PCP Internal Medicine; Visit Provider Internal Medicine Cardiovascular Disease | DX: R10.13 Epigastric pain (principal) | CPT/HCPCS: 93010 ==

== ENCOUNTER → 2025-03-23 20:50 | Outpatient (BNV) | payer OTHER, SELFPAY | PROVIDERS: PCP Internal Medicine; Visit Provider Radiology Diagnostic Radiology | DX: R14.0 Abdominal distension (gaseous) (principal) | CPT/HCPCS: 74018 ==

== ENCOUNTER 2025-03-26 13:26 | Outpatient (REF) | payer OTHER, SELFPAY ==
--- OUTSIDE RECORDS SUMMARY | 2025-03-26 14:08 | XMS_ITS | Data Portability ---
Author Organization [facility]do[facility]ez [facility] Address [address] [place] [address] Assessment No assessment recorded. Plan of Treatment Reminders Order Date Submit Date Provider Last Modified By Organization Details Last Modified Time Details Appointments None recorded. Lab rapid SARS CoV 2 Ag, QL IA, respiratory specimen 2022 023 [email or web address] [facility], [address] [place] [address], [id number], 18:40:42 Referral None recorded. Procedures None recorded. Surgeries None recorded. Imaging None recorded. Medication Orders None recorded. Patient TargetsNo targets recorded. Patient Instructions Encounter Date Encounter Id Patient Instructions Last Modified By Organization Details Last Modified Time 10/22/2022 [id number] You have present ed for a COVID Test - your Rapid COVID test was NEGATIVE. If a COVID PCR Test was collected and sent to the [facility], then we will notify you of these results once they are received. In the meantime, you should be cautious being around others. If you are having cold like symptoms, I recommend the following to help with your symptoms: 1. Take Ibuprofen or Tylenol if you do not have any allergies to these medications. If you take a blood thinner you should not take NSAIDS like Ibuprofen. These medication will help with the inflammation in your respiratory tract which should help the cough. 2. I suggest taking a Antihistamine (loratadine or cetirizine or Petty or benadryl) - to help with the congestion. I would advise this over a decongestant. 3. Saline Nasal Gays 4. Salt Water Gargles. I would be seen again immediately in the Emergency Room if you develop: 1. Shortness of Breath 2. Chest Pain 3. Fever > 101.0 4. Lethargy or Confusion. Below is the current CDC guidelines. Updated CDC Guidelines for Quarantine and Testing- 09/26/2021 If You Test Positive for COVID-19 (Isolate) Everyone, regardless of vaccination status. 1. Stay home for 5 days. 2. If you have no symptoms or your symptoms are resolving after 5 days, you can leave your house. 3. Continue to wear a mask around others for 5 additional days. If you have a fever or feel worse, continue to stay home until your fever resolves. If You Were Exposed to Someone with COVID-19 (Quarantine) If you: Have been boosted OR Completed the primary series of Pfizer or Moderna vaccine within the last 6 months. OR Completed the primary series of J&J vaccine within the last 2 months 1. Wear a mask around others for 10 days. 2. Test on day 5, if possible. 3. If you develop symptoms get a test and stay home. If you: Completed the primary series of Pfizer or Moderna vaccine over 6 months ago and are not boosted OR Completed the primary series of J&J over 2 months ago and are not boosted OR Are un-vaccinated 1. Stay home for 5 days. After that continue to wear a mask around others for 5 additional days. 2. Test on day 5, if possible. If you develop symptoms get a test and stay home Quarantine Calculation: Day 0: is the first day of symptoms or a positive viral test. Day 1: is the first full day after your symptoms developed or when your test specimen was collected. Exposure: Day 1: is the first full day after your last known contact with a person that tested positive for COVID 19. [facility] Thank you for visiting [facility] today, please feel free to call our office you have any questions or concerns. [email or web address] Not available 10/22/2022 18:40:41 Reason for Referral None Reported. Results Created Date Observation Date Name Description Value Unit Range Abnormal Flag Note LastModifiedBy Organization Detail LastModifiedTime 10/22/19 23 10/22/2022 rapid SARS CoV 2 Ag, QL IA, respi rator y speci men Unknown Analyte Normal =Negat maico Not Available [facility] [address], [address], 10/22/2022 18:01:55 10/22/19 23 10/22/2022 rapid SARS CoV 2 Ag, QL IA, respi rator y speci men Unknown Analyte negati ve Not Available [email or web address], [address], 10/22/2022 18:01:55 Result Notes None recorded. Problems No Known Problems Procedures Surgical History Date Name Laterality Status Provider Name and Address Organization Details Recorded Time cholecystectomy completed CHIKI Morse A - [facility] 10/22/2022 18:01:48 Imaging Results None recorded. Procedure Notes None recorded. Medical Equipment None Reported. Allergies No known drug allergies Medications Name Sig Start Date Stop Date Status Note LastModified by Organization Details LastModified Time cyclobenzap rine 10 mg tablet TAKE 1 TABLET BY MOUTH AT BEDTIME NEEDED FOR MUSCLE SPASMS 10/22 completed Not Available Not Available Not Available Lidoderm 5 % topical patch APPLY 1 PATCH TOPICALLY TO SKIN, LEAVE ON FOR 12 HOURS AND OFF FOR 12 HOURS DIRECTED NEEDED FOR PAIN 10/22 completed Not Available Not Available Not Available omeprazole 20 mg capsule,del ayed release TAKE 1 CAPSULE BY MOUTH EVERY DAY 10/22 completed Not Available Not Available Not Available naproxen 500 mg tablet TAKE 1 TABLET BY MOUTH TWICE DAILY NEEDED FOR HEADACHE 10/22 completed Not Available Not Available Not Available Vitals Date Recorded Body height Body mass index (BMI) Body weight Oxygen saturation Oxygen saturation in Arterial blood by Pulse oximetry Heart rate Respiratory rate Body temperature Systolic And Diastolic Provider Name and Address Organization Details Last Updated DateTime 3 157.48 cm 38.4 kg/m2 63182.4 g 97 % 97 % 83 /min 18 /min 98.1 [degF] 109/70 mm[Hg] CHIKI WISE PA - [facility] 3 17:58:38 Social History Question Answer Notes LastModified by Organizat ion Details LastModified Time Tobacco Smoking Status Never Smoker JOHNNY Black - [facility] 10/22/2022 18:01:33 Have You Recently Traveled Abroad? No [email or web address] Information not available 10/22/2022 Sex: Unknown Functional Status Question Answer Note LastModified by Organizat ion Details LastModified Time Do you use any illicit or recreational drugs? No [email or web address] Information not available 10/22/2022 Do you or have you ever used any other forms of tobacco or nicotine? No Information not available 10/22/2022 What is your level of alcohol consumption? None [email or web address] Information not available 10/22/2022 Mental Status None recorded. Family History Relationship Description Onset Age of this Age Resolved Age Notes LastModified by Organization Details LastModified Time Father No current problems or disability [email or web address] Not available 10/22 18:01:05 Mother No current problems or disability [email or web address] Not available 10/22 18:01:05 Medical History No medical history recorded. Gynecological HistoryNo gynecological history recorded. Obstetrics History GPAL:G 0 P 0 0 0 0 Past Encounters Encounter ID Performer Location Encounter Start Date Encounter Closed Date Diagnosis/Indication Diagnosis SNOMED-CT Code Diagnosis ICD10 Code Diagnosis Note [id number] [facility]OHNNY VALDEZ [address] [address] 10/22/2022 15:55:46 10/22/2022 18:42:11 Exposure to SARS-CoV-2 657922503 Z20.822 COVID TEST NEGATIVE Health Concerns Section Related Observation LastModified by Organization Detai ls LastModified Time None Recorded Concern Status LastModified by Organization Details LastModified Time None Recorded Advance Directives Directive None Recorded Payers Insurance Date Sequence Insurance Name Policy Number Policy Johnson Covered Member ID Johnson Member ID Guarantor Name 10/22/2022 1 [place] [facility] Elizabet Joyce [id number] Elizabet Joyce Notes Date Note Type Note Provider Name and Address Organization Details Recorded Time 10/22/2022 text/html COVID-19 Exposur e UCReported bypatient.COVID-19 Signs and Symptomsno cough; no fever; no shortness of breath; no chills; no muscle pain; no headache; no sore throat; no vomiting or diarrhea; no fatigue; no anorexia Duration:symptoms lasting days Associated Symptoms:no wheezing; no runny nose; no vomiting; no diarrhea; no body aches; no nausea; no hypotensionNotes:Mini wagner presents for Asymptomatic COVID Testing. Denies any current symptoms, she states maybe has been feeling a little tired and achy. Exposure at work and her boss wants testing. JOHNNY VALDEZ [facility] [place], [address], [place] - [facility] 10/22/2022 18:43:30 OBGyn Episode No OBEpisode recorded.
--- OUTSIDE RECORDS SUMMARY | 2025-03-26 14:08 | XMS_ITS | Patient Health Record ---
Author Organization [facility] Address [address] [place] [address] Care Team Providers Care Gate Manager Name Role Phone Rachael Jordan Primary Care Provider UnavailDany Negrete Unavailable [phone] Reason For Referral No Information Plan Of Treatment No Information Insurance Providers Payer Name Payer Address Payer Phone Subscriber Number Group Number Insured Name Patient Relationship to Insured Coverage Start Date Coverage End Date MEDICAID OF [facility] [address] JASMIN PAYTON [id number] [phone] [id number] GEORGETTE RICHMOND Self - patient is the insured
--- OUTSIDE RECORDS SUMMARY | 2025-03-26 14:08 | XMS_ITS | Encounter Summary ---
Author Organization [place] [address] Care Team Providers Care Student Teacher Name Role Phone Physician, Pcp Unknown Primary Care Provider Nickie vailable Encounter Details Date Type Department Care Team (Late st Contact Info) Description 02/28/2025 Lab Requisition [facility] [address] [place] [id number] Rachael Jordan MD [address] [place] [address] [place] [address] Encounter for screening for malignant neoplasm of cervix Social History Tobacco Use Types Packs/Day Years Used Date Smoking Tobacco: Never Assessed Comments Unknown Sex and Gender Information Value Date Recorded Sex Assigned at Not on file Legal Sex Female 7:19 AM EDT Gender Identity Not on file Sexual Orientation Not on file documented as of this encounter Plan of Treatment Not on file documented as of this encounter Procedures Procedure Name Priority Date/Time Associated Diagnosis Comments HPV WITH REFLEX GENOTYPE Routine 02/25/2025 12:00 PM EDT Encounter for screening for malignant neoplasm of cervix PAP SMEAR Routine 02/25/2025 12:00 PM EDT Encounter for screening for malignant neoplasm of cervix documented in this encounter Results * HPV with reflex genotype (02/25/2025 12:00 PM EDT) HPV Negative Negative LAB MICROBIOLOGY METHOD 03/01/2025 2:36 PM EDT [facility] Brushing/Spatula Cervix uteri structure / Unknown 02/25/2025 12:00 PM EDT 02/28/2025 7:40 AM EDT Rachael Jordan MD LAB MOLECULAR DIAGNOSTICS ORD ERABLES Final Result [facility] [address] [place] [address], * Pap smear (02/25/2025 12:00 PM EDT) Correction History Specimen was amended to change specimen source from cervical to vaginal. Specimen adequacy was also updated from Satisfactory for evaluation, endocervical/ba sformation zone component present to Satisfactory for evaluation. 03/05/2025 4:35 PM EDT [facility] Interpretation Negative for intraepithelial lesion or malignancy 03/05/2025 4:35 PM EDT [facility] Amendment electronically signed by MAGALYS Boss on 03/05/2025 at 4:35 PM General Categorization Negative 03/05/2025 4:35 PM EDT [facility] Specimen Adequacy Satisfactory for evaluation 03/05/2025 4:35 PM EDT [facility] Comment:Corrected result: Pr eviously reported as Satisfactory for evaluation, endocervical/transformation zone component present on 03/04/2025 at 1024 EDT. Pap Methodology Liquid Based Pap Test 03/05/2025 4:35 PM EDT [facility] Disclaimer The Pap test is a screening test which carries an inherent false negative rate. These test results should be correlated with the patient's clinical findings and history. This Pap test was processed using an automated screening system. Technical cytopathology services provided by [facility], at [address] [place] [address] (CLIA # [id number]/Elver Orellana MD, Pharmacy Informatics Manager.) 03/05/2025 4:35 PM EDT [facility] Console Pap Interpretation Reported 03/05/2025 4:35 PM EDT [facility] Brushing/Spatula Vaginal structure / Unknown 02/25/2025 12:00 PM EDT 02/28/2025 7:40 AM EDT us Rachael Jordan MD LAB CYTOLOGY ORDERABLES Edite d Result - Final [facility] [address] [place] [address], documented in this encounter Visit Diagnoses Diagnosis Encounter for screening for malignant neoplasm of cervix documented in this encounter Care Teams Student Teacher Relationship Specialty Start Date End Date Physician, Pcp Unknown PCP - General 02/28/25 documented as of this encounter
--- OUTSIDE RECORDS SUMMARY | 2025-03-26 14:08 | XMS_ITS | Clinical Summary ---
Author Organization [employer] Address [address] [place] [address] Care Team Providers Care Piercing Specialist Name Role Phone Unavailable Primary Care Provider Unavailabl e Social History Tobacco Use Types Packs/Day Years Used Date Smoking Tobacco: Never Assessed Comments Unknown Sex and Gender Information Value Date Recorded Sex Assigned at Female 07/19/2022 10:20 AM EDT Legal Sex Female 10:20 AM EDT Gender Identity Not on file Sexual Orientation Not on file Plan of Treatment Health Maintenance Due Date Last Done Comments CT Colonography 1975 Colonoscopy 1975 Colorectal Cancer Screening 1975 Depression Screening 1975 FIT DNA/Cologuard 1975 FIT 1975 FOBT 1975 Sigmoidoscopy 1975 Disability Screening 1975 Alcohol/Substance Use Screening 1987 Tobacco Screening 1987 Family Planning (PISQ) 1990 DTaP/Tdap/Td Vaccines (1 - Tdap) 1994 Hepatitis B Vaccines (1 of 3 - 19+ 3-dose series) 1994 Pap Smear 1996 Cervical Cancer Screening 2005 HPV/Cotest 2005 Mammogram 2015 COVID-19 Vaccine ( - 2023-2 5 season) 2024 Influenza Vaccine (#1) 2025 Zoster Vaccines (1 of 2) 2025 RSV Patients and Pa tients Aged 60 years or older (1 - 1-dose 75+ series) 2050 HIB Vaccines Aged Out No longer eligi ble based on patient's age to complete this topic HPV Vaccines Aged Out No longer eligi ble based on patient's age to complete this topic Hepatitis A Vaccines Aged Out No long er eligible based on patient's age to complete this topic IPV Vaccines Aged Out No longer eligi ble based on patient's age to complete this topic Meningococcal B Vaccine Aged Out No l onger eligible based on patient's age to complete this topic Meningococcal Vaccine Aged Out No edvin andrew eligible based on patient's age to complete this topic Pneumococcal Vaccine: Pediat rics (0 to 5 Years) and At-Risk Patients (6 to 49) Years Aged Out No longer eligible b ased on patient's age to complete this topic RSV under 20 months Aged Out No longe r eligible based on patient's age to complete this topic Rotavirus Vaccines Aged Out No longer eligible based on patient's age to complete this topic
== END 2025-03-26 13:27 | disposition home or self-care (01) ==
LOC: HO.MAMMO 13:26
PROVIDERS: PCP Internal Medicine; Referring Provider Internal Medicine; Visit Provider Student in an Organized Health Care Education/Training Program
DX: Z12.31 Encounter for screening mammogram for malignant neoplasm of breast (principal)
CPT/HCPCS: 77063; 77067

== ENCOUNTER → 2025-03-26 14:00 | Outpatient (BNV) | payer OTHER, SELFPAY | PROVIDERS: PCP Internal Medicine; Referring Provider Internal Medicine; Visit Provider Internal Medicine | DX: Z12.31 Encounter for screening mammogram for malignant neoplasm of breast (principal) | CPT/HCPCS: 77063; 77067 ==

== ENCOUNTER 2025-07-23 07:07 | Emergency (ER) | payer SELFPAY ==
--- OUTSIDE RECORDS SUMMARY | 2025-06-05 09:40 | XMS_ITS ---
Author Organization [facility] Address [address] [place] [phone] Care Team Providers Care Nut Roaster Helper Name Role Phone Rachael Jordan Primary Care Provider UnavailDany Negrete [phone] REASON FOR VISIT Patient presents today for a COLON SCREENING Encounters Encounter Location Date Provider Diagnosis [facility] [address] [place] [id number] 06/05/2025 Dany Rushing Plan Of Treatment No Information Progress Notes * BROOKE RICHMONDDOB: 6 (49 yo F)Acc No.[id number]:06/05/2025 Progress Notes Patient: BROOKE GREEN Provider: Brittney Rushing MD :1975 A ge:49 Y S ex:Female Date:06/05/2025 [address] [id number] Pcp:Rachael Jordan Subjective: * Chief Complaints: * 1 . Patient presents today for a COLON SCREENING. * Medical History: Objective: * Vitals: Assessment: Plan: * Treatment: * * The named appointment provid er may or may not be the originator of this progress note, and it is not deemed complete until electronically signed by the appointment provider. Sign off status: Pending * Provider: Brittney Rushing MD Date: 0 06/05/2025 Generated for Az chinchilla/Ricco/Bryn on: 09/22/2024 08:26 AM EST
--- NOTE | ~2025-07-23 | CT_ITS ---
EXAMINATION: CT ABDOMEN AND PELVIS WITH CONTRAST CLINICAL INFORMATION: Right lower quadrant and right flank pain. COMPARISON: None available. TECHNIQUE: Multidetector volumetric images were obtained from the superior aspect of the liver through the pubic symphysis following administration 85 mL of Omnipaque 350 intravenous contrast. Sagittal and coronal reformatted images were obtained on the technologist's workstation. Oral contrast: No This CT examination was performed using dose optimization techniques as appropriate, variously including the following: *Automated exposure control *Adjustment of mA and/or kV according to patient size (this includes techniques or standardized protocols for targeted exams where dose is matched to indication/reason for exam; i.e. extremities or head) *Use of iterative reconstruction technique FINDINGS: LUNG BASES: Lung bases are clear. There is a small type I hiatus hernia. LIVER, GALLBLADDER, AND BILIARY TREE: The liver is normal in size and contour. There is diffuse fatty infiltration. There is no suspicious focal lesion. There is no intra or extrahepatic biliary ductal dilatation. The gallbladder is surgically absent. PANCREAS: Unremarkable. SPLEEN: Unremarkable. ADRENAL GLANDS: Unremarkable. KIDNEYS AND URETERS: The kidneys are normal in size, shape, and attenuation. No hydronephrosis, hydroureter, or right-sided calculi seen. No perinephric stranding. There is a 4 mm nonobstructing left renal calculus in the upper pole region. BLADDER: Unremarkable. GASTROINTESTINAL TRACT: Small type I hiatus hernia. Stomach, and duodenum appear normal. Small bowel is normal in caliber and course. No wall thickening or inflammation. The appendix is normal. The colon is normal in caliber and course. No wall thickening or inflammation. The rectum is normal. ABDOMINAL WALL: No significant hernia is appreciated. LYMPH NODES: There is no abnormal lymphadenopathy. VASCULAR: Unremarkable. PELVIC VISCERA: The uterus and adnexa are unremarkable. OSSEOUS STRUCTURES: There is no suspicious lytic or blastic bone lesion. There are no acute findings. CT/CT abdomen pelvis w IV con IMPRESSION: 1. No acute findings in the abdomen or pelvis. 2. Diffuse fatty infiltration of the liver. Cholecystectomy. 3. Nonobstructing 4 mm left renal calculus. 4. Small type I hiatus hernia. Electronically signed by: Konrad Gunn MD 07/23/2025 09:23 AM [facility]
[2025-07-23 07:10] VITALS: BP 147/59; PULSE 69; RESP 20; TEMP 36.1; O2SAT 97; BMI 37.2
--- NOTE | 2025-07-23 07:42 | ED.BACK ---
HPI - Back Pain/Injury General Chief Complaint: Back Pain/Injury Stated Complaint: BACK PAIN Time Seen by Provider: 07/23/25 07:39 Source: patient and RN notes reviewed Mode of arrival: ambulatory Limitations: no limitations History of Present Illness ED Provider: Saira Carcamo PA-C HPI Narrative: This is a 50-kehd-ufq-tajik speaking female, with a hx of migraines, who presents to the ER with complaints of right sided low back pain which started 3 days ago. Patient denies any recent trauma or injury. No heavy lifting. Patient reports that she awoke 3 days ago and had this pain. Patient states that the pain starts in her right low back and radiates down her right leg. Denies history of similar symptoms in the past. Patient reports that the pain worsens with movement and with palpation, pain starts in the right low back and extends into the right lower flank and right lower quadrant of her abdomen. States that the pain radiates down her right leg. Denies any fevers, chills, chest pain, shortness for breath, nausea, vomiting. No urinary symptoms. No constipation or diarrhea. No other complaints or concerns at this time. MD elicited complaint: back pain Timing: constant Severity: moderate Similar Symptoms Previously: No Quality: aching Location: right flank Radiation: abdomen and right upper leg Exacerbating factors: movement Relieving factors: movement Associated symptoms: denies other symptoms Work related injury: No Related Data Previous Rx's ?Medication ?Instructions ?Recorded cyclobenzaprine 10 mg tablet 10 mg PO BEDTIME PRN muscle spasm 01/03/22 #7 tabs lidocaine 5 % topical patch 1 patch topical DAILY PRN pain #15 01/03/22 ea naproxen 500 mg tablet 500 mg PO BID #14 tabs 01/03/22 gypeoqrfac-dzqqjelpsaaye-nemujzpn 1 tab PO Q6H PRN haeadace #20 tabs 11/26/24 50 mg-325 mg-40 mg tablet sucralfate 100 mg/mL oral 10 ml PO QID PRN indigestion #300 03/23/25 suspension (Carafate) mL acetaminophen 500 mg tablet 1,000 mg (2 x 500 mg) PO Q8H PRN 07/23/25 (Tylenol Extra Strength) pain #30 tabs cyclobenzaprine 10 mg tablet 10 mg PO TID PRN muscle spasm #10 07/23/25 tabs ibuprofen 600 mg tablet 600 mg PO Q6H PRN pain #30 tabs 07/23/25 Allergies Allergy/AdvReac Type Severity Reaction Status Date / Time No Known Allergies Allergy Verified 07/23/25 07:17 Review of Systems Review of Systems: Constitutional : No Fever, No Chills ENT/Mouth : No sore throat, No Rhinorrhea Eyes: No Eye Pain, No Swelling, No Redness Cardiovascular : No Chest Pain, No SOB Respiratory : No Cough, No Sputum Gastrointestinal : No Nausea, No Vomiting, No Diarrhea, + abdominal Pain Genitourinary : No Dysuria, No Hematuria Musculoskeletal : No joint pain, No Myalgias, No Joint Swelling Skin : No Skin Lesions Neuro : No Weakness, No Numbness, No Headache All other systems reviewed and are negative Yes all other systems are reviewed and are negative Constitutional: Constitutional: Reports as per [facility] Social History Social History Alcohol intake: current Alcohol intake frequency: holidays/special occasions only Advance Directives: No Advance Directives Information Provided: Yes Do you have a plan to hurt others: No Plan Physical Exam Vital Signs: Vital Signs: Last Vital Signs Temp 97.5 F 07/23/25 11:42 Pulse 55 07/23/25 11:42 Resp 18 07/23/25 11:42 BP 110/58 L 07/23/25 11:42 Pulse Ox 98 07/23/25 11:46 O2 Del Method Room Air 07/23/25 11:46 BMI result Body Mass Index 37.2 Const: General: cooperative, comfortable and no acute distress Orientation/consciousness: patient oriented x3 Limitations: no limitations HEENT: Head: Yes normal to inspection, Yes normocephalic and Yes atraumatic Ears: hearing grossly normal bilaterally General nose exam: Normal external nose present Face and sinus: Yes normal facial exam Mouth: Normal oral and palatal mucosa present, oropharynx normal and moist mucous membranes Throat: Yes posterior oropharynx normal Eyes: General: appearance normal, both eyes and all related structures Eyelids: Yes eyelids normal Conjunctivae: conjunctivae normal Sclerae: sclerae normal Pupils: Equal, round and reactive pupils present EOM: EOMs intact bilaterally Neck: Neck: Yes normal visual inspection, Yes full ROM and Yes no lymphadenopathy Lymphatic: no lymphadenopathy noted Chest: Chest palpation & inspection: normal inspection of the chest Resp: Effort & Inspection: normal respiratory effort and able to speak in complete sentences Auscultation: clear to auscultation bilaterally, no crackles, no rales, no rhonchi and no wheezes Cardio: Rate: regular rate Rhythm: regular rhythm Heart sounds: S1 normal heart sound present and S2 normal heart sound present GI: Other: Abd is soft, with TTP in the RLQ pain, extending into the right flank. Inspection: Yes normal to inspection Skin: General skin exam: no rashes or lesions noted Trauma: no lacerations or abrasions Wounds: no wounds Neuro: General: patient oriented x3 and moves all extremities Cranial nerves: Yes Equal, round and reactive pupils present Extrem: General: Yes normal to inspection Right upper extremity: normal to inspection Left upper extremity: normal to inspection Right lower extremity: normal to inspection Left lower extremity: normal to inspection Medications Administered Discontinued Medications Generic Name Dose Route Start Last Admin Trade Name Freq PRN Reason Stop Dose Admin Dexamethasone Sodium Phosphate 10 mg 07/23/25 11:20 07/23/25 11:37 Dexamethasone Sod Phosphate 10 Mg/Ml Vial IVPUSH 07/23/25 11:21 10 mg ONCE ONE Administration Diazepam 2 mg 07/23/25 11:20 07/23/25 11:37 Diazepam 2 Mg Tablet PO 07/23/25 11:21 2 mg ONCE ONE Administration Acetaminophen 1,000 mg in 100 mls @ 400 mls/hr 07/23/25 07:48 07/23/25 08:32 Ofirmev IV 07/23/25 08:02 Infused ONCE ONE Infusion Iohexol 100 ml 07/23/25 09:07 07/23/25 09:07 Iohexol 350 Mg/Ml 100 Ml Infus..Btl IV 07/23/25 09:08 85 ml ONCE ONE Administration Ketorolac Tromethamine 15 mg 07/23/25 09:16 07/23/25 09:32 Ketorolac Tromethamine 15 Mg/Ml Vial IVPUSH 07/23/25 09:17 15 mg ONCE ONE Administration Medical Decision Making Medical Decision Making MDM Narrative: This is a 73-fhyp-prd-tajik speaking female, with a hx of migraines, who presents to the ER with complaints of right sided low back pain which started 3 days ago. On arrival, patient appears to be uncomfortable secondary to pain. Blood pressure slightly elevated at 147/59, other vital signs within normal limits. Patient with tenderness palpation in the right lower quadrant. DDX UTI, renal colic, appendicitis, lumbar radiculopathy. Will obtain labs, UA, and CT abdomen given pt with TTP in the RLQ and need for r/o intrabdominal process. Plan: Labs, UA, CT abd/pelvis 1:08 PM 07/23/2025 (Saira Carcamo PA-C): CT revealing no acute findings. There is diffuse fatty infiltration of the liver, with cholecystectomy. There is also a nonobstructing 4 millimeter left renal calculus. There is also a small type hiatus hernia. HCG is 4 - she is post menopausal - LMP aat age 43. We are awaiting a urine sample which we have collected, this shows glucosuria, and high specific gravity. Labs revealed no leukocytosis, stable H&H, chemistry with slight elevation in random glucose at 128 this is nonfasting. Sxs likely lumbar radiculopathy in nature. Pt feeling much better after decadron and valium. Encouraged to f.u with PCP. She understands and agrees with plan. Pt stable for d.c Differential Diagnosis Differential Diagnoses: The differential diagnosis associated with the presentation includes See above Lab Data [facility] Lab Attestation statement: I reviewed the patient's lab results. see mdm 07/23/25 07:57 07/23/25 07:57 Labs: Lab Results 07/23/25 07/23/25 Range/Units 07:57 11:49 WBC 6.5 (4.8-10.8) X10*3/uL RBC 4.70 (4.20-5.50) X10*6/uL Hgb 13.3 (12.0-16.0) g/dl Hct 41.1 (37.0-47.0) % MCV 87.4 (80.0-98.0) fL MCH 28.3 (27.0-33.0) pg MCHC 32.4 (31.0-35.0) g/dl RDW 12.5 (11.0-16.0) % Plt Count 230 (160-400) X10*3/uL MPV 10.1 (9.4-12.3) fL Immature Gran % (Auto) 0.5 H (0.0-0.4) % Neut % (Auto) 56.0 (45-73) % Lymph % (Auto) 32.0 (20-40) % [place] % (Auto) 8.9 (2-11) % Eos % (Auto) 2.0 (0-4) % Baso % (Auto) 0.6 (0-2) % Lymph # (Auto) 2.1 (1.2-4.9) X10*3/uL [place] # (Auto) 0.6 (0.1-1.2) X10*3/uL Eos # (Auto) 0.1 (0.0-0.4) X10*3/uL Baso # (Auto) 0.0 (0.0-0.2) X10*3/uL Abs Immat Gran (auto) 0.03 (0.00-0.03) X10*3/uL Absolute Neuts (auto) 3.6 (2.0-8.3) x10*3/uL Absolute Nucleated RBC 0.000 (0.0-0.012) X10*3/uL Nucleated RBC % (auto) 0.0 (0.0-0.2) /100WBC Sodium 139 (135-145) mmol/L Potassium 4.0 (3.3-5.1) mmol/L Chloride 108 (96-108) mmol/L Carbon Dioxide 24 (22-29) mmol/L Anion Gap 11 L (12-20) BUN 11 (9-16) mg/dL Creatinine 0.62 (0.5-1.4) mg/dL Estim Creat Clear Calc 115.9 Estimated GFR > 60 Random Glucose 128 H (60-115) mg/dL Calcium 8.8 (8.4-10.2) mg/dL Magnesium 2.3 (1.6-2.6) mg/dL Total Bilirubin 0.4 (0.0-1.0) mg/dL Direct Bilirubin 0.1 (0.0-0.5) mg/dL AST 45 H (5-31) U/L ALT 50 H (0-31) U/L Alkaline Phosphatase 144 H (39-117) U/L Total Protein 7.2 (6.5-8.0) g/dL Albumin 4.1 (3.5-5.0) g/dL Lipase 24 (8-78) U/L Beta HCG, Quant 4 mIU/mL Urine Color Yellow Urine Appearance Clear Urine pH 5.5 (5.0-9.0) Ur Specific [place] >= 1.030 H (1.005-1.025) Urine Protein Trace (Neg-Trace) mg/dL Urine Glucose (UA) 500 H (Negative) mg/dL Urine Ketones Negative (Negative) mg/dL Urine Blood Negative (Negative) Urine Nitrite Negative (Negative) Ur Leukocyte Esterase Negative (Negative) Radiology Impression Discussion of test interpretation with radiology: I have reviewed the radiologist's reading. Radiologist Impression: [address] [address] [address] Scan Report Signed Patient: Elizabet Driver MR#: [id number] : 1975 Acct:[id number] Age/Sex: 49 / F ADM Date: 07/23/25 Loc: .ED Attending Dr: Ordering Physician: Saira Carcamo Date of Service: 07/23/25 Procedure(s): CT abdomen pelvis w IV con Accession Number(s): [id number] cc: Rachael Jordan MD; Saira Carcamo~ Report Number: [id number]: Total DLP = 727.00 mGy-cm Reason for Exam: RLQ pain, R flank pain EXAMINATION: CT ABDOMEN AND PELVIS WITH CONTRAST CLINICAL INFORMATION: Right lower quadrant and right flank pain. COMPARISON: None available. TECHNIQUE: Multidetector volumetric images were obtained from the superior aspect of the liver through the pubic symphysis following administration 85 mL of Omnipaque 350 intravenous contrast. Sagittal and coronal reformatted images were obtained on the technologist's workstation. Oral contrast: No This CT examination was performed using dose optimization techniques as appropriate, variously including the following: *Automated exposure control *Adjustment of mA and/or kV according to patient size (this includes techniques or standardized protocols for targeted exams where dose is matched to indication/reason for exam; i.e. extremities or head) *Use of iterative reconstruction technique FINDINGS: LUNG BASES: Lung bases are clear. There is a small type I hiatus hernia. LIVER, GALLBLADDER, AND BILIARY TREE: The liver is normal in size and contour. There is diffuse fatty infiltration. There is no suspicious focal lesion. There is no intra or extrahepatic biliary ductal dilatation. The gallbladder is surgically absent. PANCREAS: Unremarkable. SPLEEN: Unremarkable. ADRENAL GLANDS: Unremarkable. KIDNEYS AND URETERS: The kidneys are normal in size, shape, and attenuation. No hydronephrosis, hydroureter, or right-sided calculi seen. No perinephric stranding. There is a 4 mm nonobstructing left renal calculus in the upper pole region. BLADDER: Unremarkable. GASTROINTESTINAL TRACT: Small type I hiatus hernia. Stomach, and duodenum appear normal. Small bowel is normal in caliber and course. No wall thickening or inflammation. The appendix is normal. The colon is normal in caliber and course. No wall thickening or inflammation. The rectum is normal. ABDOMINAL WALL: No significant hernia is appreciated. LYMPH NODES: There is no abnormal lymphadenopathy. VASCULAR: Unremarkable. PELVIC VISCERA: The uterus and adnexa are unremarkable. OSSEOUS STRUCTURES: There is no suspicious lytic or blastic bone lesion. There are no acute findings. CT/CT abdomen pelvis w IV con IMPRESSION: 1. No acute findings in the abdomen or pelvis. 2. Diffuse fatty infiltration of the liver. Cholecystectomy. 3. Nonobstructing 4 mm left renal calculus. 4. Small type I hiatus hernia. Electronically signed by: Konrad Gunn MD 07/23/2025 09:23 AM [facility] Dictated By: Konrad Gunn MD Discharge Plan Discharge Clinical Impression: Lumbar radiculopathy, Hiatal hernia Patient Disposition: Home, Self-Care Instructions: Lumbar Radiculopathy (ED) Additional Instructions: You were seen in the emergency department due to back pain and abdominal pain. Your blood work was reassuring. You did have sugar in your urine, please follow-up with your primary care physician. Urine does not appear to be infected. You likely have lumbar radiculopathy, which is inflammation in your back causing you to have nerve pain down your leg. We gave you Decadron, this is steroid that lasts in your system for several days. Alternate between ibuprofen and or Tylenol. Gentle stretching and moist heat can be beneficial. Flexeril as a muscle relaxant, please be advised that this can cause drowsiness, do not drink alcohol or drive while taking this medication. Take this only as needed for severe pain. You have a nonobstructing 4 millimeter left renal calculus, this would not be causing you to have this pain. You also have a small hiatal hernia, you can follow-up with the surgeon if you so wish. Please follow-up with your primary care physician regarding this visit. If any new or worsening symptoms occur including but not limited to worsening back pain, severe chest pain, shortness of breath, numbness and tingling into your groin, loss of bladder bowel control, please seek emergent care. Prescriptions: New ibuprofen 600 mg tablet 600 mg PO Q6H PRN (Reason: pain) Qty: 30 0RF cyclobenzaprine 10 mg tablet 10 mg PO TID PRN (Reason: muscle spasm) Qty: 10 0RF acetaminophen [Tylenol Extra Strength] 500 mg tablet 1,000 mg PO Q8H PRN (Reason: pain) Qty: 30 0RF No Action cyclobenzaprine 10 mg tablet 10 mg PO BEDTIME PRN (Reason: muscle spasm) Qty: 7 0RF lidocaine 5 % adhesive patch,medicated 1 patch topical DAILY PRN (Reason: pain) Qty: 15 0RF Rx Instructions: leave on most painful area for up to 12 hrs naproxen 500 mg tablet 500 mg PO BID Qty: 14 0RF sucralfate [Carafate] 100 mg/mL suspension 10 ml PO QID PRN (Reason: indigestion) Qty: 300 0RF Rx Instructions: swish in mouth and swallow; use after food/drink rbfslzvonm-jdaxrqmptgpxc-hajc 50-325-40 mg tablet 1 tab PO Q6H PRN (Reason: haeadace) Qty: 20 0RF Referrals: [facility] General Surgeons [Provider Group, General Surgery] Referral Note: Small type I hiatus hernia Discharge Date/Time: 07/23/25 13:38 Print Language: Armenian
[2025-07-23 08:05] LABS: MANUAL DIFF FLAG NO
--- NOTE | 2025-07-23 08:05 | PC.NURSE ---
patient presents with rlq pain since tuesday, patient denies nausea/vomiting/fever. IV started in the R wrist #20, labs obtained, patient medicated per NOV 26 pain
[2025-07-23 08:06] LABS: Hematocrit 41.1 % (37.0-47.0); Hemoglobin 13.3 g/dl (12.0-16.0); Imm Gran Abs Auto 0.03 X10*3/uL (0.00-0.03); Imm Gran Pct Auto 0.5 % (0.0-0.4); Lymphocytes Absolute Auto 2.1 X10*3/uL (1.2-4.9); Mean Corpuscular HGB Conc 32.4 g/dl (31.0-35.0); Mean Corpuscular Hemoglobin 28.3 pg (27.0-33.0); Mean Corpuscular Volume 87.4 fL (80.0-98.0); NRBC Abs Auto 0.000 X10*3/uL (0.0-0.012); NRBC Pct Auto 0.0 /100WBC (0.0-0.2); Platelet Count 230 X10*3/uL (160-400); Red Blood Count 4.70 X10*6/uL (4.20-5.50); White Blood Count 6.5 X10*3/uL (4.8-10.8)
--- OUTSIDE RECORDS SUMMARY | 2025-07-23 08:26 | XMS_ITS | Patient Health Record ---
Author Organization [facility] Address [address] [place] [address] Care Team Providers Care Icu Nurse Name Role Phone Rachael Jordan Primary Care Provider UnavailDany Negrete Unavailable [phone] Reason For Referral No Information Plan Of Treatment No Information Insurance Providers Payer Name Payer Address Payer Phone Subscriber Number Group Number Insured Name Patient Relationship to Insured Coverage Start Date Coverage End Date MEDICA[facility] [address] [place] [id number] GEORGETTE RICHMOND Self - patient is the insured
[2025-07-23 08:27] LABS: Alanine Aminotransferase 50 U/L (0-31); Albumin Level 4.1 g/dL (3.5-5.0); Alkaline Phosphatase 144 U/L (39-117); Anion Gap 11 (12-20); Aspartate Amino Transferase 45 U/L (5-31); Blood Urea Nitrogen 11 mg/dL (9-16); Calcium 8.8 mg/dL (8.4-10.2); Carbon Dioxide 24 mmol/L (22-29); Chloride 108 mmol/L (96-108); Creatinine Clr Calc Pharmacy 115.9; Estimated Glomerular Filt Rate > 60; Lipase 24 U/L (8-78); Magnesium 2.3 mg/dL (1.6-2.6); Potassium 4.0 mmol/L (3.3-5.1); Sodium 139 mmol/L (135-145); Total Protein 7.2 g/dL (6.5-8.0)
--- OUTSIDE RECORDS SUMMARY | 2025-07-23 08:27 | XMS_ITS | Clinical Summary ---
Author Organization [employer] Address [address] [place] [address] Care Team Providers Care Fiber Optic Assembly Worker Name Role Phone Unavailable Primary Care Provider [...] COVID-19 Vaccine ( - 2023-2 5 season) 2025 Influenza Vaccine (#1) 2025 Zoster Vaccines (1 [...]
--- OUTSIDE RECORDS SUMMARY | 2025-07-23 08:27 | XMS_ITS | Patient Health Record ---
Author Organization [facility] Address [address] [place] [address] Care Team Providers Care Plumber Maintenance Name Role Phone Rachael Jordan Primary Care Provider Unavailab Dany Lainez Unavailable [phone] Reason For Referral No Information Encounters Encounter Location Date Provider Diagnosis [facility] [address] [place] [address] 06/04/2025 Dany Rushing Plan Of Treatment No Information Insurance Providers Payer Name Payer Address Payer Phone Subscriber Number Group Number Insured Name Patient Relationship to Insured Coverage Start Date Coverage End Date [facility] [address] [place] [address] [phone] [id number] BROOKE RICHMOND Self - patient is the insured
--- OUTSIDE RECORDS SUMMARY | 2025-07-23 08:27 | XMS_ITS | Clinical Summary ---
Author Organization [address] [facility] Address [address] [place] [address] Phone Care Team Providers Care Policy Specialist Name Role Phone Physician, Pcp Unknown Primary Care Provider Nickie vailable Social History Tobacco Use Types Packs/Day Years Used Date Smoking Tobacco: Never Assessed Comments Unknown Sex and Gender Information Value Date Recorded Sex Assigned at Not on file Legal Sex Female 7:19 AM EDT Gender Identity Not on file Sexual Orientation Not on file Plan of Treatment Health Maintenance Due Date Last Done Comments Breast Cancer Screening 1975 Colorectal Cancer Screening: Colonoscopy 1975 DTaP,Tdap,and Td Vaccines (1 - Tdap) 1994 Hepatitis B Vaccines (1 of 3 - 19+ 3-dose series) 1994 Depression Screening 09/19/2024 HIV Screening 02/28/2025 Hepatitis C Screening 02/28/2025 Social Influencers of Health Screening 02/28/2025 COVID-19 Vaccine ( - 2023-2 5 season) 2025 Influenza Vaccine (#1) 2025 Cervical Cancer Screening: HPV 02/25/2030 02/25/2025 RSV Immunization Adult Patie nts (1 - 1-dose 75+ series) 2050 HIB [...] on patient's age to complete this topic MMR Vaccines Aged Out No longer eligi ble based on patient's age to complete this topic Meningococcal ACWY Vaccine Aged Out N o longer eligible based on patient's age to complete this topic Meningococcal B Vaccine Aged Out No l onger eligible based on patient's age to complete this topic Pneumococcal Vaccine: Pediat rics (0 to 5 Years) and At-Risk Patients (6 to 49 Years) Aged Out No longer eligi ble based on patient's age to complete this topic RSV Immunization Patients Un iraida 20 months Aged Out No longer eligible b ased on patient's age to complete this topic Varicella Vaccines Aged Out No longer eligible based on patient's age to complete this topic Procedures Procedure Name Priority Date/Time Associated Diagnosis Comments HPV WITH REFLEX GENOTYPE Routine 02/25/2025 12:00 PM EDT Encounter for screening for malignant neoplasm of cervix from Last 3 Months or Most Recently Relevant to Health Maintenance Results * HPV with reflex genotype (02/25/2025 12:00 PM EDT) HPV Negative Negative LAB MICROBIOLOGY METHOD 03/01/2025 2:36 PM EDT [facility] Brushing/Spatula Cervix uteri structure / Unknown 02/25/2025 12:00 PM EDT 02/28/2025 7:40 AM EDT us Rachael Jordan MD LAB MOLECULAR DIAGNOSTICS ORD ERABLES Final Result [facility] [address] [place] [address], [place] [phone] from Last 3 Months or Most Recently Relevant to Health Maintenance Insurance [facility] [employer] Care Teams Policy Specialist Relationship Specialty Start Date End Date Physician, Pcp Unknown PCP - General 02/28/25
--- OUTSIDE RECORDS SUMMARY | 2025-07-23 08:27 | XMS_ITS | Encounter Summary ---
Author Organization [facility] [place] [address] Care Team Providers Care Farm Equipment Technician Name Role Phone Physician, Pcp Unknown Primary Care Provider Nickie vailable Encounter Details Date Type Department Care Team (Late st Contact Info) Description 02/28/2025 Lab Requisition [facility] [address] [place] [id number] Rachael Jordan MD [address] [place] [address] [place] [address] Encounter for screening for malignant neoplasm of [...] LAB MICROBIOLOGY METHOD 03/01/2025 2:36 PM EDT [facility] Brushing/Spatula Cervix uteri structure / Unknown 02/25/2025 12:00 PM EDT 02/28/2025 7:40 AM EDT Rachael Jordan MD LAB MOLECULAR DIAGNOSTICS ORD ERABLES Final Result [facility] [address] [place] [address], * Pap smear (02/25/2025 12:00 PM EDT) Correction History Specimen was amended to change specimen source from cervical to vaginal. Specimen adequacy was also updated from Satisfactory for evaluation, endocervical/ba sformation zone component present to Satisfactory for evaluation. 03/05/2025 4:35 PM EDT [facility] Interpretation Negative for intraepithelial lesion or malignancy 03/05/2025 4:35 PM EDT [facility] Amendment electronically signed by MAGALYS Boss on 03/05/2025 at 4:35 PM General Categorization Negative 03/05/2025 4:35 PM EDT [facility] Specimen Adequacy Satisfactory for evaluation 03/05/2025 4:35 PM EDT [facility] Comment:Corrected result: Pr eviously reported as Satisfactory for evaluation, endocervical/transformation zone component present on 03/04/2025 at 1024 EDT. Pap Methodology Liquid Based Pap Test 03/05/2025 4:35 PM EDT [facility] Disclaimer The Pap test is a screening test which carries an inherent false negative rate. These test results should be correlated with the patient's clinical findings and history. This Pap test was processed using an automated screening system. Technical cytopathology services provided by [facility], at [address] [place] [address] (CLIA # [id number]/Elver Orellana MD, Subsorter.) 03/05/2025 4:35 PM EDT [facility] Console Pap Interpretation Reported 03/05/2025 4:35 PM EDT [facility] Brushing/Spatula Vaginal structure / Unknown 02/25/2025 12:00 PM EDT 02/28/2025 7:40 AM EDT us Rachael Jordan MD LAB CYTOLOGY ORDERABLES Edite d Result - Final [facility] ([facility] [address] [place] [address], documented in this encounter Visit Diagnoses Diagnosis Encounter for screening for malignant neoplasm of cervix documented in this encounter Care Teams Farm Equipment Technician Relationship Specialty Start Date End Date Physician, Pcp Unknown PCP - General 02/28/25 documented as of this encounter
--- OUTSIDE RECORDS SUMMARY | 2025-07-23 08:27 | XMS_ITS | Encounter Summary ---
Author Organization [facility] Address [address] [facility] [address] [place] [address] Care Team Providers Care Tool Maintenance Worker Name Role Phone Unavailable Primary Care Provider Unavailabl e Reason for Visit * Reason Onset Date Comments New PAtient 05/03/2023 Encounter Details Date Type Department Care Team (Late st Contact Info) Description 05/03/2023 Telephone [facility]ICINE [address] [place], [place] [phone] Aakash Rutledge MD [address] [place], [place] [phone] New PAtient Social History Tobacco Use Types Packs/Day Years Used Date Smoking Tobacco: Never Assessed Comments Unknown Sex and Gender Information Value Date Recorded Sex Assigned at Female 07/19/2022 10:20 AM EDT Legal Sex Female 10:20 AM EDT Gender Identity Not on file Sexual Orientation Not on file documented as of this encounter Miscellaneous Notes * Telephone Encounter - Clint Boucher - 05/03/2023 10:18 AM EDT [facility] anatoly Mcneal, informed that we do take insurance, but must call [facility] to change location. [facility] to please call back to facility at [phone] documented in this encounter Plan of Treatment Not on file documented as of this encounter Visit Diagnoses Not on filedocumented in this encounter
[2025-07-23] MEDS: iohexoL 350 MG/ML 100 ML INFUS..BTL IV (09:07)
[2025-07-23 11:42] VITALS: BP 110/58; PULSE 55; RESP 18; TEMP 36.4
[2025-07-23 11:46] VITALS: O2SAT 98
[2025-07-23 11:58] LABS: Appearance Urine Clear; Glucose Urine UA 500 mg/dL (Negative); PH 5.5 (5.0-9.0); Specific Gravity - Urine >= 1.030 (1.005-1.025)
== END 2025-07-23 13:38 | disposition home or self-care (01) ==
PROVIDERS: Physician Assistant Medical; Emergency Provider Emergency Medicine; PCP Internal Medicine
DX: M54.16 Radiculopathy, lumbar region (principal); K44.9 Diaphragmatic hernia without obstruction or gangrene
CPT/HCPCS: 36415; 74177; 80048; 80076; 81003; 83690; 83735; 84702; 85025; 96365; 96375; 99285; J0131; J1100; J1885; Q9967

== ENCOUNTER → 2025-07-23 07:47 | Outpatient (BNV) | payer OTHER, SELFPAY | PROVIDERS: Emergency Provider Emergency Medicine; PCP Internal Medicine; Visit Provider Radiology Diagnostic Radiology | DX: N20.0 Calculus of kidney (principal); K76.0 Fatty (change of) liver, not elsewhere classified; K44.9 Diaphragmatic hernia without obstruction or gangrene | CPT/HCPCS: 74177 ==